=== PATIENT | male | born 1990 | race African-American/Black ===

== ENCOUNTER 2016-12-07 11:43 | Emergency (ER) | payer OTHER ==
[~2016-12-07] VITALS: Ht 190.5 cm; Wt 71.4 kg
[2016-12-07 12:04] VITALS: BP 148/75
== END 2016-12-07 15:17 | disposition home or self-care (01) ==
LOC: EME 11:43
DX: A74.9 Chlamydial infection, unspecified (principal)
CPT/HCPCS: 99281; 99283; J0696

== ENCOUNTER 2017-08-24 09:20 | Emergency (ER) | payer OTHER ==
[~2017-08-24] VITALS: Ht 190.5 cm; Wt 70.0 kg
[2017-08-24 10:15] LABS: ADD MIUA? YES; BILIRUBIN NEGATIVE; BLOOD NEGATIVE; COLOR YELLOW ((YELLOW)); GLUCOSE (STRIP) NEGATIVE; KETONES NEGATIVE; LEUKOCYTES NEGATIVE; NITRITE NEGATIVE; PROTEIN (STRIP) NEGATIVE; UROBILINOGEN 0.2 MG/DL (0.2-1.0)
[2017-08-24 11:46] VITALS: BP 120/79
[2017-08-24 12:34] LABS: BACTERIA NONE SEEN /HPF; EPITHELIAL CELLS NONE SEEN /HPF; MUCUS NONE SEEN /LPF; RED BLOOD CELLS NONE SEEN /HPF (0-5); UCUL ADDED? NO; WHITE BLOOD CELLS NONE SEEN /HPF (0-5)
[2017-08-24 12:35] LABS: AMORPHOUS URATES CRYSTALS FEW; CRYSTALS PRESENT
[2017-08-26 12:09] LABS: CHLAMYDIA TRACHOMATIS NEGATIVE; NEISSERIA GONORRHOEAE NEGATIVE
== END 2017-08-24 11:47 | disposition home or self-care (01) ==
LOC: EME 09:20
PROVIDERS: Nurse Practitioner Family
DX: A64 Unspecified sexually transmitted disease (principal); F17.200 Nicotine dependence, unspecified, uncomplicated
CPT/HCPCS: 81003; 87491; 87591; 99281; 99285; J0696

== ENCOUNTER 2017-08-24 14:59 | Emergency (ER) | payer OTHER | END 2017-08-24 15:00 | disposition left against medical advice (07) | LOC: EME 14:59 | DX: Z53.21 Procedure and treatment not carried out due to patient leaving prior to being seen by health care provider (principal) ==

== ENCOUNTER 2018-02-26 09:35 | Emergency (ER) | payer SELFPAY ==
[~2018-02-26] VITALS: Ht 190.5 cm; Wt 70.1 kg
[2018-02-26 09:41] VITALS: BP 124/73
== END 2018-02-26 11:02 | disposition home or self-care (01) ==
LOC: EME 09:35
DX: A64 Unspecified sexually transmitted disease (principal); N34.2 Other urethritis; F17.200 Nicotine dependence, unspecified, uncomplicated
CPT/HCPCS: 99281; 99284; J0696

== ENCOUNTER 2018-07-10 18:51 | Emergency (ER) | payer OTHER ==
[~2018-07-10] VITALS: Ht 190.5 cm; Wt 71.2 kg
[2018-07-10 19:14] LABS: APPEARANCE CLEAR ((CLEAR)); BILIRUBIN NEGATIVE; BLOOD SMALL; COLOR YELLOW ((YELLOW)); GLUCOSE (STRIP) NEGATIVE; KETONES NEGATIVE; LEUKOCYTES NEGATIVE; NITRITE NEGATIVE; PROTEIN (STRIP) NEGATIVE; SPECIFIC GRAVITY 1.026 (1.000-1.030)
[2018-07-10 19:27] LABS: BACTERIA NONE SEEN /HPF; EPITHELIAL CELLS RARE /HPF; MUCUS TRACE /LPF; SOURCE URINE; UCUL ADDED? NO; WHITE BLOOD CELLS 0-5 /HPF (0-5)
[2018-07-10 20:26] VITALS: BP 134/76
[2018-07-11 13:17] LABS: CHLAMYDIA TRACHOMATIS NEGATIVE; NEISSERIA GONORRHOEAE NEGATIVE
== END 2018-07-10 20:27 | disposition home or self-care (01) ==
LOC: EME 18:51
PROVIDERS: Nurse Practitioner Family
DX: R36.9 Urethral discharge, unspecified (principal); Z20.2 Contact with and (suspected) exposure to infections with a predominantly sexual mode of transmission
CPT/HCPCS: 81003; 84520; 87491; 87591; 99281; 99285; J0696